=== PATIENT | male | born 1955 | race Caucasian/White ===

== ENCOUNTER 2016-12-18 12:33 | Emergency (ER) | payer OTHER ==
[2016-12-18 15:14] VITALS: BP 143/90
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
== END 2016-12-18 13:15 | disposition home or self-care (01) ==
LOC: VM.ED 12:33
DX: E11.649 Type 2 diabetes mellitus with hypoglycemia without coma (principal); I10 Essential (primary) hypertension; Z86.73 Personal history of transient ischemic attack (TIA), and cerebral infarction without residual deficits; Z79.84 Long term (current) use of oral hypoglycemic drugs; Z79.899 Other long term (current) drug therapy
CPT/HCPCS: 82962; 99285

== ENCOUNTER 2020-04-20 09:00 | Emergency (ER) | payer OTHER ==
[2020-04-20] MEDS ORDERED: Sodium Chloride 0.9% 10 ML Syringe FLUSH PRN (09:29)
[2020-04-20] MEDS ORDERED: Nitroglycerin 0.4 MG Tab.SL SL ONE (09:39)
--- NOTE | 2020-04-20 09:40 | EDM.PDOC ---
ED HPI GENERAL MEDICAL PROBLEM - General Chief Complaint: Respiratory Problem Stated Complaint: SOB,NAUSEA/DIARRHEA Time Seen by Provider: 04/20/20 09:00 Source of Information: Reports: Patient History Limitations: Reports: No Limitations - History of Present Illness INITIAL COMMENTS - FREE TEXT/NARRATIVE: Pt. presents to ER with complaints of increased shortness of breath, dyspnea on exertion, congestion, and rhinorrhea. Pt. states that the symptoms started on . He has had no known exposures to covid, but he has been in contact with his grandchildren who are in school. reports that he has been experiencing nausea, vomiting, and diarrhea, but patient denies these symptoms. Pt. denies any loss of taste. No sore throat. Complains of sinus congestion. Pt. has a history of hypertension, CAD, ischemic cardiomyopathy and has an AICD. His does have a history of pleural effusion in the past. He denies every having a thoracentesis. He doctors at the [place]. Onset Date: 04/15/20 Location: Reports: Chest, Generalized Associated Symptoms: Reports: Cough, Shortness of Breath. Denies: Chest Pain, Diaphoresis, Fever/Chills, Headaches, Nausea/Vomiting, Rash, Seizure, Syncope, Weakness - Related Data Allergies Allergy/AdvReac Type Severity Reaction Status Date / Time No Known Allergies Allergy Verified 04/20/20 09:47 Home Meds: Home Meds Insulin Aspart [NovoLOG] 7 unit SUBCUT ASDIRECTED 04/22/15 [History] Omeprazole 40 mg PO DAILY 04/22/15 [History] Rosuvastatin [Crestor] 40 mg PO DAILY 04/22/15 [History] levETIRAcetam [Levetiracetam] 1,000 mg PO BID 04/22/15 [History] Aspirin 81 mg PO DAILY 04/20/20 [History] Clopidogrel [Plavix] 75 mg PO DAILY 04/20/20 [History] Enalapril Maleate [Vasotec] 20 mg PO BID 04/20/20 [History] Pyridoxine HCl [Vitamin B-6] 100 mg PO DAILY 04/20/20 [History] Spironolactone [Aldactone] 25 mg PO DAILY 04/20/20 [History] carvediloL [Carvedilol] 25 mg PO BID 04/20/20 [History] Past Medical History Cardiovascular History: Reports: Arrhythmia, CAD, [place] Neurological History: Reports: CVA, TIA Other Neuro History: brain tumor Endocrine/Metabolic History: Reports: Diabetes, Type II - Past Surgical History Other Neurological Surgeries/Procedures: brain tumor removal ED ROS GENERAL - Review of Systems Review Of Systems: See Below Constitutional: Reports: No Symptoms, Fatigue. Denies: Fever, Chills, Night Sweats, Diaphoresis HEENT: Reports: No Symptoms Respiratory: Reports: Shortness of Breath, Cough Cardiovascular: Reports: Blood Pressure Problem, Dyspnea on Exertion, Other (History of ischemic cardiomyopathy, has defibrillator.). Denies: Chest Pain Endocrine: Reports: No Symptoms GI/Abdominal: Reports: No Symptoms : Reports: No Symptoms Musculoskeletal: Reports: No Symptoms Skin: Reports: No Symptoms Neurological: Reports: No Symptoms Psychiatric: Reports: No Symptoms Hematologic/Lymphatic: Reports: No Symptoms Immunologic: Reports: No Symptoms ED EXAM, GENERAL - Physical Exam Exam: See Below Exam Limited By: No Limitations General Appearance: Alert, WD/WN, Moderate Distress Eye Exam: Bilateral Eye: EOMI, PERRL Head: Atraumatic, Normocephalic Neck: Normal Inspection, Supple, Non-Tender Respiratory/Chest: No Accessory Muscle Use, Decreased Breath Sounds, Other (Initial respiratory distress, resolved with IV lasix) Cardiovascular: Normal Peripheral Pulses, Regular Rate, Rhythm, No Edema, No JVD GI/Abdominal: Soft, Non-Tender, No Distention, No Mass (Male) Exam: Deferred Rectal (Males) Exam: Deferred Extremities: Normal Inspection, Normal Range of Motion, Non-Tender, Normal Capillary Refill Neurological: Alert, Oriented, CN II-XII Intact, Normal Cognition, Normal Reflexes, No Motor/Sensory Deficits Psychiatric: Normal Affect, Normal Mood Skin Exam: Warm, Dry, Intact, Pallor Lymphatic: No Adenopathy #1 Interpretation Rhythm: NSR [place]: Normal P-Wave: Present QRS: Normal ST-T: Normal QT: Normal Course - Vital Signs Last Recorded V/S: Last Vital Signs Temp 36.3 C 04/20/20 09:00 Pulse 78 04/20/20 10:45 Resp 16 04/20/20 10:45 BP 136/87 04/20/20 10:45 Pulse Ox 94 L 04/20/20 10:45 - Orders/Labs/Meds Orders: Active Orders 24 hr Category Date Time Status EKG Documentation Completion [RC] STAT Care 04/20/20 09:29 Active CULTURE BLOOD [BC] Stat Lab 04/20/20 09:50 Received CULTURE BLOOD [BC] Stat Lab 04/20/20 10:00 Received Sodium Chloride 0.9% [Saline Flush] Med 04/20/20 09:29 Active 10 ml FLUSH ASDIRECTED PRN Blood Culture x2 Reflex Set [OM.PC] Stat Oth 04/20/20 09:30 Ordered Peripheral IV Insertion Adult [OM.PC] Routine Oth 04/20/20 09:30 Ordered Medication Orders Sodium Chloride (Saline Flush) 10 ml FLUSH ASDIRECTED PRN PRN Reason: Keep Vein Open Labs: Laboratory Tests 04/20/20 04/20/20 04/20/20 Range/Units 09:11 09:13 09:13 WBC 11.2 H (4.0-10.0) x10^3/uL RBC 5.88 (4.5-6.0) x10^6/uL Hgb 16.4 (14.0-18.0) g/dL Hct 50.5 (40.0-52.0) % MCV 85.9 D (78.0-93.0) fL MCH 27.9 (26.0-32.0) pg MCHC 32.5 (32.0-36.0) g/dL RDW Coeff of Darryn 14.5 (10.0-15.0) % Plt Count 211 D (130-400) x10^3/uL Neut % (Auto) 76.6 (50.0-80.0) % Lymph % (Auto) 10.7 L (25.0-50.0) % Saunders % (Auto) 8.3 (2.0-11.0) % Eos % (Auto) 4.2 H (0.0-4.0) % Baso % (Auto) 0.2 (0.2-1.2) % PT (9.5-12.3) SEC INR (2.0-3.5) D-Dimer, Quantitative (<=0.58) mg/LFEU Sodium 139 (136-145) mmol/L Potassium 4.0 (3.5-5.1) mmol/L Chloride 102 (98-107) mmol/L Carbon Dioxide 30 (21-32) mmol/L Anion Gap 11.0 (10-20) mmol/L BUN 14 (7-18) mg/dL Creatinine 1.2 (0.70-1.30) mg/dL Est Cr Clr Drug Dosing TNP Estimated GFR (MDRD) > 60 Glucose 183 H (74-106) mg/dL Lactic Acid (0.4-2.0) mmol/L Calcium 9.2 (8.5-10.1) mg/dL Corrected Calcium 9.92 (8.5-10.1) mg/dL Magnesium 1.6 L (1.8-2.4) mg/dL Total Bilirubin 0.4 (0.2-1.0) mg/dL AST 23 (15-37) U/L ALT 20 (16-63) U/L Alkaline Phosphatase 107 (46-116) U/L Troponin I < 0.017 (<=0.056) ng/mL C-Reactive Protein 2.9 H (<=0.9) mg/dL NT-Pro-B Natriuret Pep 1763 H (<=125) pg/mL Total Protein 7.9 (6.4-8.2) g/dL Albumin 3.1 L (3.4-5.0) g/dL Globulin 4.8 Albumin/Globulin Ratio 0.65 SARS CoV-2 RNA Rapid PARKER Negative (NEGATIVE) 04/20/20 04/20/20 Range/Units 09:50 09:50 WBC (4.0-10.0) x10^3/uL RBC (4.5-6.0) x10^6/uL Hgb (14.0-18.0) g/dL Hct (40.0-52.0) % MCV (78.0-93.0) fL MCH (26.0-32.0) pg MCHC (32.0-36.0) g/dL RDW Coeff of Darryn (10.0-15.0) % Plt Count (130-400) x10^3/uL Neut % (Auto) (50.0-80.0) % Lymph % (Auto) (25.0-50.0) % Saunders % (Auto) (2.0-11.0) % Eos % (Auto) (0.0-4.0) % Baso % (Auto) (0.2-1.2) % PT 11.2 (9.5-12.3) SEC INR 1.0 L (2.0-3.5) D-Dimer, Quantitative 0.72 H (<=0.58) mg/LFEU Sodium (136-145) mmol/L Potassium (3.5-5.1) mmol/L Chloride (98-107) mmol/L Carbon Dioxide (21-32) mmol/L Anion Gap (10-20) mmol/L BUN (7-18) mg/dL Creatinine (0.70-1.30) mg/dL Est Cr Clr Drug Dosing Estimated GFR (MDRD) Glucose (74-106) mg/dL Lactic Acid 0.9 (0.4-2.0) mmol/L Calcium (8.5-10.1) mg/dL Corrected Calcium (8.5-10.1) mg/dL Magnesium (1.8-2.4) mg/dL Total Bilirubin (0.2-1.0) mg/dL AST (15-37) U/L ALT (16-63) U/L Alkaline Phosphatase (46-116) U/L Troponin I (<=0.056) ng/mL C-Reactive Protein (<=0.9) mg/dL NT-Pro-B Natriuret Pep (<=125) pg/mL Total Protein (6.4-8.2) g/dL Albumin (3.4-5.0) g/dL Globulin Albumin/Globulin Ratio SARS CoV-2 RNA Rapid PARKER (NEGATIVE) Meds: Medications Generic Name Dose Route Start Last Admin Trade Name Freq PRN Reason Stop Dose Admin Sodium Chloride 10 ml 04/20/20 09:29 Saline Flush FLUSH ASDIRECTED PRN Keep Vein Open Discontinued Medications Generic Name Dose Route Start Last Admin Trade Name Freq PRN Reason Stop Dose Admin Ceftriaxone Sodium 2 gm 04/20/20 12:22 04/20/20 12:32 Rocephin IVPUSH 04/20/20 12:23 2 gm STAT ONE Administration Furosemide 60 mg 04/20/20 10:35 04/20/20 10:40 Lasix IV 04/20/20 10:36 60 mg ONETIME ONE Administration Iopamidol 100 ml 04/20/20 10:51 04/20/20 11:23 Isovue-300 (61%) IVPUSH 04/20/20 10:52 100 ml ONETIME ONE Administration Nitroglycerin 0.4 mg 04/20/20 09:39 04/20/20 09:48 Nitrostat SL 04/20/20 09:40 0.4 mg ONETIME ONE Administration - Radiology Interpretation Free Text/Narrative:: CHF noted on chest x-ray. No obvious infiltrate. CTA performed (+ d dimer) No obvious PE noted. Pleural effusion noted. Unknown if infectious vs. chronic vs. pulmonary edema. Evidence of CHF. Departure - Departure Time of Disposition: 12:43 Disposition: Home, Self-Care 01 Clinical Impression: CHF (congestive heart failure), Pleural effusion, Community acquired pneumonia - Discharge Information Instructions: Heart Failure, Self Care, [id number], Pleural Effusion, Community-Acquired Pneumonia, Adult, [id number] Referrals: Tracie Shaver LABEL PRESS OPERATOR [Primary Care Provider] - Forms: ED Department Discharge Additional Instructions: Home to rest. If you are short of breath or your breathing is getting worse and wish to be admitted, you are welcome to [facility]. Lasix 20mg 2 tabs daily for 6 days Doxycycline 100mg 1 tab twice daily for 10 days Follow-up in clinic in 7-10 days, sooner if not gradually improving. Sepsis Event Note (ED) - Focused Exam Vital Signs: Vital Signs Temp Pulse Resp BP BP Pulse Ox Pulse Ox 04/20/20 10:45 78 16 136/87 94 L 04/20/20 09:52 124/85 04/20/20 09:48 199/127 H 04/20/20 09:45 95 04/20/20 09:10 96 04/20/20 09:00 36.3 C 81 28 H 199/127 H 78 L - Problem List Review Problem List Initiated/Reviewed/Updated: Yes - My Orders Last 24 Hours: My Active Orders 04/20/20 09:29 EKG Documentation Completion [RC] STAT Sodium Chloride 0.9% [Saline Flush] 10 ml FLUSH ASDIRECTED PRN 04/20/20 09:30 Blood Culture x2 Reflex Set [OM.PC] Stat Peripheral IV Insertion Adult [OM.PC] Routine 04/20/20 09:50 CULTURE BLOOD [BC] Stat 04/20/20 10:00 CULTURE BLOOD [BC] Stat - Assessment/Plan Last 24 Hours: My Active Orders 04/20/20 09:29 EKG Documentation Completion [RC] STAT Sodium Chloride 0.9% [Saline Flush] 10 ml FLUSH ASDIRECTED PRN 04/20/20 09:30 Blood Culture x2 Reflex Set [OM.PC] Stat Peripheral IV Insertion Adult [OM.PC] Routine 04/20/20 09:50 CULTURE BLOOD [BC] Stat 04/20/20 10:00 CULTURE BLOOD [BC] Stat Plan: Home to rest. If you are short of breath or your breathing is getting worse and wish to be admitted, you are welcome to return to [facility]. Lasix 20mg 2 tabs daily for 6 days Doxycycline 100mg 1 tab twice daily for 10 days Follow-up in clinic in 7-10 days, sooner if not gradually improving.
[2020-04-20 09:59] LABS: CHLORIDE,CL 102 mmol/L (98-107); SODIUM,NA 139 mmol/L (136-145)
[2020-04-20] MEDS ORDERED: Furosemide 40 MG/4 ML VIAL IV ONE (10:35)
--- NOTE | 2020-04-20 10:35 | CR ---
[id number] RAD/RAD Chest PA or AP 1V EXAM: FRONTAL CHEST INDICATION: DYSPNEA. COMPARISON: None. DISCUSSION: The heart is enlarged with mild central vascular congestion. Mild elevation of left hemidiaphragm is suggested. Moderate left and small right pleural effusions. Left subclavian approach pacemaker-ICD leads RA and RV. IMPRESSION: 1. Evidence of congestive heart failure with early central vascular congestion, small right and moderate left pleural effusions. Fabián Martínez MD 04/20/20 1034 Thank you for allowing us to participate in the care of your patient.
[2020-04-20] MEDS ORDERED: Iopamidol 612 MG/ML 100 ML Bottle IVPUSH ONE (10:51)
--- NOTE | 2020-04-20 12:08 | CT ---
[id number] CT/CTA Chest EXAM: CTA Chest CLINICAL DATA: SHORTNESS OF BREATH, POSITIVE D-DIMER. COMPARISON STUDY: None. FINDINGS: Lungs: Left-sided pleural effusion with associated with fairly smooth uniform appearing pleural thickening. Findings suggest either underlying infectious process versus chronic effusion. Dense parenchymal opacification the posterior left lower lobe. Somewhat linear appearing nodular masslike opacification in left upper lobe extending to the subpleural region. Additional changes of linear opacification in the right middle and lower lobes. Findings are superimposed on diffusely mosaic appearing parenchymal attenuation pattern. Mediastinum: No mediastinal or hilar lymphadenopathy. Heart and great vessels: No evidence of pulmonary embolus within limitation of respiratory motion artifact. Artifact obscures majority of the small segmental and subsegmental branches of both lung bases. Cardiomegaly and coronary artery atherosclerosis. No pericardial effusion. Thoracic aorta atherosclerosis. No aneurysm. No evidence of dissection. Bones: No acute fracture or compression deformity. Spondylosis. Upper abdomen: Small hiatus hernia. Otherwise unremarkable. IMPRESSION: Negative for pulmonary embolus within limitation of extensive patient respiratory motion artifact obscures vessels in both lung bases. Abnormal parenchymal opacification and a somewhat complex left pleural effusion, described above. Appearance is nonspecific. Differential diagnosis includes changes of pulmonary edema versus pneumonia. Correlate for signs of infection. Jose Cline MD 04/20/20 [id number] Thank you for allowing us to participate in the care of your patient.
[2020-04-20] MEDS ORDERED: cefTRIAXone 2 GM Vial IVPUSH ONE (12:22)
[2020-04-20 12:35] VITALS: BP 159/97; PULSE 79
== END 2020-04-20 13:03 | disposition home or self-care (01) ==
LOC: VM.ED 09:00
DX: J18.9 Pneumonia, unspecified organism (principal); J90 Pleural effusion, not elsewhere classified; I11.0 Hypertensive heart disease with heart failure; I50.9 Heart failure, unspecified; I25.10 Atherosclerotic heart disease of native coronary artery without angina pectoris; E11.9 Type 2 diabetes mellitus without complications; I25.2 Old myocardial infarction; Z86.73 Personal history of transient ischemic attack (TIA), and cerebral infarction without residual deficits; Z20.828 Contact with and (suspected) exposure to other viral communicable diseases; Z79.82 Long term (current) use of aspirin; Z79.02 Long term (current) use of antithrombotics/antiplatelets; Z79.899 Other long term (current) drug therapy; Z79.4 Long term (current) use of insulin
CPT/HCPCS: 36415; 71045; 71275; 80053; 83605; 83735; 83880; 84484; 85025; 85379; 85610; 86140; 87040; 87635; 93005; 96374; 96375; 99285; J0696; J1940; Q9967; 93010; 99284; U0002

== ENCOUNTER 2024-04-28 16:21 | Emergency (ER) | payer OTHER, MEDICARE ==
[2024-04-28 17:43] VITALS: BP 107/76; PULSE 84
== END 2024-04-28 17:31 | disposition home or self-care (01) ==
LOC: VM.ED 16:21
DX: E11.649 Type 2 diabetes mellitus with hypoglycemia without coma (principal); I25.10 Atherosclerotic heart disease of native coronary artery without angina pectoris; I25.2 Old myocardial infarction; Z79.899 Other long term (current) drug therapy; Z79.82 Long term (current) use of aspirin; Z79.4 Long term (current) use of insulin
CPT/HCPCS: 82947; 99284; 99285

== ENCOUNTER 2025-01-26 15:55 | Emergency (ER) | payer OTHER, MEDICARE ==
[2025-01-26 16:09] LABS: BASOPHILS ABSOLUTE AUTO 0.0 x10^3/uL (0.0-0.2); BASOPHILS PERCENT AUTO 0.1 % (0.2-1.2); EOSINOPHILS ABSOLUTE AUTO 0.2 x10^3/uL (0.0-0.5); EOSINOPHILS PERCENT AUTO 2.2 % (0.0-4.0); IMMATURE GRAN ABSOLUTE AUTO 0.02 x10^3/uL (0.00-0.07); IMMATURE GRAN PERCENT AUTO 0.30 % (0.00-0.43); LYMPHOCYTES ABSOLUTE AUTO 1.3 x10^3/uL (1.0-4.8); LYMPHOCYTES PERCENT AUTO 19.4 % (25.0-50.0); MONOCYTES ABSOLUTE AUTO 0.8 x10^3/uL (0.0-0.8); MONOCYTES PERCENT AUTO 12.1 % (2.0-11.0); NEUTROPHILS ABSOLUTE AUTO 4.5 x10^3/uL (1.8-7.7); NEUTROPHILS PERCENT AUTO 65.9 % (50.0-80.0); PLATELET COUNT,PLT 137 x10^3/uL (130-400); RED BLOOD CELL COUNT 4.21 x10^6/uL (4.5-6.0); WHITE BLOOD CELL COUNT,WBC 6.9 x10^3/uL (4.0-10.0)
[2025-01-26 16:27] LABS: A/G RATIO 0.85; ALANINE AMINOTRANSFERASE,ALT 20 U/L (16-63); ASPARTATE AMNIOTRANSFERASE,AST 20 U/L (15-37); BILIRUBIN TOTAL 0.4 mg/dL (0.2-1.0); BLOOD UREA NITROGEN,BUN 27 mg/dL (7-18); CARBON DIOXIDE,CO2 28 mmol/L (21-32); CHLORIDE,CL 100 mmol/L (98-107); CREATININE 2.1 mg/dL (0.70-1.30); GLUCOSE RANDOM 272 mg/dL (70-99); POTASSIUM,K 4.5 mmol/L (3.5-5.1); PROTEIN TOTAL,TP 6.3 g/dL (6.4-8.2); SODIUM,NA 139 mmol/L (136-145)
[2025-01-26 16:28] LABS: ESTIMATED GFR 33 mL/min (>=60)
[2025-01-26] MEDS: Ondansetron 4 MG/2 ML SDV IVPUSH ONE (16:50)
== END 2025-01-26 18:50 | disposition short-term general hospital (02) ==
LOC: VM.ED 15:55
DX: S72.144A Nondisplaced intertrochanteric fracture of right femur, initial encounter for closed fracture (principal); I25.10 Atherosclerotic heart disease of native coronary artery without angina pectoris; I25.2 Old myocardial infarction; E11.9 Type 2 diabetes mellitus without complications; Z86.73 Personal history of transient ischemic attack (TIA), and cerebral infarction without residual deficits; Z79.899 Other long term (current) drug therapy; Z79.82 Long term (current) use of aspirin; W18.30XA Fall on same level, unspecified, initial encounter; Y92.009 Unspecified place in unspecified non-institutional (private) residence as the place of occurrence of the external cause
CPT/HCPCS: 36415; 73502; 80053; 85025; 96374; 96375; 96376; 99283; 99284; J2405; J1171

== ENCOUNTER 2025-04-09 12:35 | Emergency (ER) | payer OTHER, MEDICARE ==
[2025-04-09] MEDS ORDERED: Sodium Chloride 0.9% 10 ML Syringe FLUSH PRN (12:50)
[2025-04-09 13:03] LABS: BASOPHILS ABSOLUTE AUTO 0.0 x10^3/uL (0.0-0.2); BASOPHILS PERCENT AUTO 0.1 % (0.2-1.2); EOSINOPHILS ABSOLUTE AUTO 0.0 x10^3/uL (0.0-0.5); EOSINOPHILS PERCENT AUTO 0.0 % (0.0-4.0); IMMATURE GRAN ABSOLUTE AUTO 0.03 x10^3/uL (0.00-0.07); IMMATURE GRAN PERCENT AUTO 0.30 % (0.00-0.43); LYMPHOCYTES ABSOLUTE AUTO 0.7 x10^3/uL (1.0-4.8); LYMPHOCYTES PERCENT AUTO 6.4 % (25.0-50.0); MONOCYTES ABSOLUTE AUTO 1.3 x10^3/uL (0.0-0.8); MONOCYTES PERCENT AUTO 11.7 % (2.0-11.0); NEUTROPHILS ABSOLUTE AUTO 9.0 x10^3/uL (1.8-7.7); NEUTROPHILS PERCENT AUTO 81.5 % (50.0-80.0); PLATELET COUNT,PLT 115 x10^3/uL (130-400); RED BLOOD CELL COUNT 3.93 x10^6/uL (4.5-6.0); WHITE BLOOD CELL COUNT,WBC 11.1 x10^3/uL (4.0-10.0)
[2025-04-09 13:24] LABS: A/G RATIO 0.59; ALANINE AMINOTRANSFERASE,ALT 14 U/L (16-63); ASPARTATE AMNIOTRANSFERASE,AST 20 U/L (15-37); BILIRUBIN TOTAL 0.4 mg/dL (0.2-1.0); BLOOD UREA NITROGEN,BUN 38 mg/dL (7-18); CARBON DIOXIDE,CO2 32 mmol/L (21-32); CHLORIDE,CL 100 mmol/L (98-107); CREATININE 2.5 mg/dL (0.70-1.30); ESTIMATED GFR 27 mL/min (>=60); GLUCOSE RANDOM 99 mg/dL (70-99); POTASSIUM,K 5.0 mmol/L (3.5-5.1); PROTEIN TOTAL,TP 6.5 g/dL (6.4-8.2); SODIUM,NA 137 mmol/L (136-145)
[2025-04-09] MEDS: Ondansetron 4 MG/2 ML SDV IVPUSH ONE (14:15)
[2025-04-09 16:09] VITALS: BP 88/54; PULSE 74
== END 2025-04-09 18:26 | disposition short-term general hospital (02) ==
LOC: VM.ED 12:35
DX: A41.9 Sepsis, unspecified organism (principal); S72.012A Unspecified intracapsular fracture of left femur, initial encounter for closed fracture; I25.10 Atherosclerotic heart disease of native coronary artery without angina pectoris; I25.2 Old myocardial infarction; E11.9 Type 2 diabetes mellitus without complications; Z79.4 Long term (current) use of insulin; Z79.82 Long term (current) use of aspirin; Z79.01 Long term (current) use of anticoagulants; Z79.899 Other long term (current) drug therapy; W19.XXXA Unspecified fall, initial encounter; Y92.129 Unspecified place in nursing home as the place of occurrence of the external cause
CPT/HCPCS: 36415; 71045; 73700-LT; 80053; 83605; 85025; 87040; 96361; 96365; 96375; 99285-25; J0456; J0696; J2405; J7030; J7050